=== PATIENT | female | born 1990 | race Caucasian/White ===

== ENCOUNTER → 2016-08-15 | Outpatient (CLI) | payer OTHER ==
[~2016-08-15] MED LIST: ONDA4TAB8 PO; OTC ALLERGY MEDS
--- NOTE | 2016-08-15 14:06 | Diagnostic Imaging Report ---
PROCEDURE: US Breast limited, left. TECHNIQUE: Multiple realtime grayscale images were obtained over the left breast in various projections. DATE: August 15, 2016. INDICATION: 25-year-old female, bilateral breast pain which varies with cycles although in the inferior aspect of the left breast has persisted for approximately two months. COMPARISON: None. FINDINGS: A targeted ultrasound of the left breast including the areas of pain in the inferior aspect of the left breast was performed. There is no sonographically demonstrated mass or other abnormality. IMPRESSION: No sonographic evidence of malignancy in the left breast. Recommend routine clinical breast exam and annual screening mammography beginning at age 40 unless there are patient risk factors necessitating earlier screening. ACR BI-RADS Category 1: Negative. Result letter will be mailed to the patient. Note: At least 10% of breast cancer is not imaged by mammography. Dictated by: Dictated on workstation # [id number]
== END ==
LOC: RAD 12:37
PROVIDERS: ATTEND Family Medicine
DX: N64.4 Mastodynia (principal)
CPT/HCPCS: 76642

== ENCOUNTER → 2016-08-23 | Outpatient (CLI) | payer OTHER ==
[2016-08-23 15:30] VITALS: BP 123/79
== END ==
LOC: MHUC 10:16
PROVIDERS: ATTEND Physician Assistant Medical
DX: J01.20 Acute ethmoidal sinusitis, unspecified (principal)